=== PATIENT | female | born 1970 | race Caucasian/White ===

== ENCOUNTER 2021-08-11 06:23 | Day surgery (SDC) | payer BC ==
[2021-08-11] MEDS ORDERED: Lactated Ringers 1,000 ML IV SCH (07:00)
[2021-08-11] MEDS ORDERED: Versed 2 MG/2 ML Injection IV ONE (07:15)
[2021-08-11] MEDS ORDERED: DIPRIVAN 200 MG/20 ML IV ONE (07:21)
[2021-08-11] MEDS ORDERED: SUBLIMAZE 100 MCG/2 ML ONE (07:22)
[2021-08-11] MEDS ORDERED: Versed 2 MG/2 ML Injection ONE (07:22)
[2021-08-11] MEDS ORDERED: TORAdol 30 mg Injection ONE (07:24)
[2021-08-11] MEDS ORDERED: Zofran 4 MG/2 ML VIAL ONE (07:24)
[2021-08-11] MEDS ORDERED: Decadron 4 MG INJ ONE (07:24)
[2021-08-11 10:21] VITALS: O2SAT 97
[2021-08-11 10:29] VITALS: BP 120/82; PULSE 72
--- NOTE | 2021-08-12 10:35 | OP ---
SURGERY DATE/TIME: 08/12/2021 0837 PREOPERATIVE DIAGNOSIS: Postmenopausal bleeding. POSTOPERATIVE DIAGNOSIS: Postmenopausal bleeding. PROCEDURE: Hysteroscopy D&C. SURGEON: Jose Cruz Asher D.O. DUCT CLEANER: Aubrey Saldana technology coordinator. ANESTHESIA: General. ESTIMATED BLOOD LOSS: Minimal. COMPLICATIONS: None. INDICATIONS: The risks, benefits, indications and alternatives of the procedure were reviewed with the patient prior to the procedure. The patient understood the risk of infection, bleeding, bowel injury, bladder injury, ureteral injury, uterine perforation associated with this surgery and desires to have this surgery as a possible means to alleviate her current medical condition. DESCRIPTION OF PROCEDURE AND FINDINGS: At this point the patient is taken to the operating room, given general sedation, placed in dorsal lithotomy position. Prepped and draped in the usual sterile fashion. A weighted speculum is then placed in the patient's vagina and the anterior lip of the cervix was grasped with a single tooth tenaculum. Endocervical dilators were advanced through the endocervical canal as a means to dilate the cervix and at this point the 5 mm hysteroscope was then placed in through the endocervical canal where visualization of the endometrial cavity appeared to be within normal limits with no gross abnormalities. From this point the hysteroscope was removed and the curette was then placed into the fundus of the uterus and curettage performed in all quadrants of the uterus retrieving a mild amount of tissue. From this point hemostasis was obtained. From this point all instruments were removed from the patient's vaginal region. The patient was then taken out of dorsal lithotomy position, was taken out of anesthesia and was then taken to the recovery room in stable condition. All instruments and laps were accounted for x2.
== END 2021-08-11 10:30 | disposition home or self-care (01) ==
LOC: SDC 06:23
PROVIDERS: ATTEND Obstetrics & Gynecology
DX: N95.0 Postmenopausal bleeding (principal)
CPT/HCPCS: 84703; J1100; J1885; J2250; J2405; J2704; J3010